=== PATIENT | female | born 1955 | race Asian ===

== ENCOUNTER → 2022-04-16 14:31 | Outpatient (CLI) | payer MEDICARE, OTHER, SELFPAY ==
--- NOTE | 2022-04-16 | DI.ECHO.S_ITS ---
[place] [facility]---------+ [facility] +---------+ : : [address] : : : : [place] : : : : [id number] : : : : Phone: [phone]---------+ Echocardiogram Report + + :Name: LEON BORRERO Study Date: 04/16/2022 Height: 60 in : :[facility] ReadingLocation: Weight: 140 lb : : Gender: Female BSA: 1.6 m2 : :: 1955 Age: 66 yrs BP: 168/103 mmHg: :Reason For Study: Abnormal ECG : :Ordering Physician: Arnol, : :Ramez Performed By: Fidencio Johnson : :Referring: Ramez Ambrose : + + Interpretation Summary The left ventricle is normal in size. There is mild concentric left ventricular hypertrophy. The ejection fraction is estimated to be 60-65%. Diastolic parameters suggest probable normal left ventricular diastolic function and normal filling pressures. There is mild mitral regurgitation. There is mild aortic regurgitation. Hypertensive during exam No prior study for comparison. Procedure: A two-dimensional transthoracic echocardiogram with color flow and Doppler was performed. The study quality was technically adequate. There is no prior echocardiogram noted for this patient. Hypertensive during exam. Left Ventricle: The left ventricle is normal in size. There is mild concentric left ventricular hypertrophy. Left ventricular systolic function is normal. The ejection fraction is estimated to be 60-65%. There are no focal wall motion abnormalities. Diastolic parameters suggest probable normal left ventricular diastolic function and normal filling pressures. Right Ventricle: The right ventricle is normal in size and function. Atria: Both atria are normal in size. The interatrial septum grossly appears intact with no obvious evidence for an atrial septal defect. Mitral Valve: The mitral valve is normal in structure and function. There is mild mitral regurgitation. Aortic Valve: The aortic valve is normal in structure and function. There is mild aortic regurgitation. Tricuspid Valve: The tricuspid valve is normal in structure and function. There is trace tricuspid regurgitation. The right ventricular systolic pressure is estimated to be at least 29 mmHg based on an estimated right atrial pressure of 3 mm Hg. Pulmonic Valve: The pulmonic valve is normal in structure and function. There is trace pulmonic regurgitation. Great Vessels: The aortic root is normal size. The dimensions of the ascending aorta are normal. The IVC is of normal diameter and collapses greater than 50% with a sniff. This suggests a low right atrial pressure of 3 mm Hg. Pericardium/ Pleura There is no pericardial effusion. There is no pleural effusion. MMode/2D Measurements & Calculations LVIDd: 4.4 cm LVOT diam: 1.9 cm LVIDs: 2.8 cm Ao root diam: 3.0 cm FS: 36.4 % asc Aorta Diam: 3.5 cm IVSd: 1.3 cm LVPWd: 1.2 cm LV clemente. diameter/BSA (cm/m^2): 2.7 LV sys. diameter/BSA (cm/m^2): 1.7 LA dimension: 2.6 cm RA long axis: 4.4 cm LA A2 area: 14.6 cm2 LA A4 area: 13.3 cm2 LA length (vol): 4.7 cm LA vol: 35.3 ml LA vol index: 22.0 ml/m2 TAPSE_phl: 2.1 cm Doppler Measurements & Calculations Ao V2 max: 114.0 cm/sec LVOT Max Ryan: 136.0 cm/sec Ao V2 mean: 87.3 cm/sec LV V1 max P.4 mmHg Ao max P.0 mmHg LV V1 VTI: 27.8 cm Ao mean P.0 mmHg AMADA(I,D): 3.2 cm2 Ao V2 VTI: 24.4 cm AMADA(V,D): 3.4 cm2 sev ratio: 1.1 AMADA indexed to BSA (cm^2/m^2): 2.0 MV E max ryan: 90.2 cm/sec TR max ryan: 256.0 cm/sec MV A max ryan: 114.0 cm/sec TR max P.2 mmHg MV E/A: 0.79 Med Peak E' Ryan: 6.2 cm/sec E/E' med: 14.6 Lat Peak E' Ryan: 9.2 cm/sec E/E' lat: 9.8 E/e' average: 12.2 MV dec time: 0.21 sec SV(LVOT): 78.8 ml AV VR_phl: 1.2 AMADA(VTI)/BSA_phl: 2.0 MV P1/2t-pr_phl: 61.0 msec Reading Physician:PHANI
== END ==
PROVIDERS: Referring Provider Family Medicine; Visit Provider Family Medicine
DX: R94.31 Abnormal electrocardiogram [ECG] [EKG] (principal); I08.0 Rheumatic disorders of both mitral and aortic valves
CPT/HCPCS: 93306

== ENCOUNTER 2023-07-15 16:52 | Emergency (ER) | payer OTHER, SELFPAY ==
[2023-07-15 16:56] VITALS: BP 176/85; PULSE 78; RESP 18; TEMP 36.9; O2SAT 95; BMI 24.5
--- NOTE | 2023-07-15 17:03 | DI.RAD.S_ITS ---
PROCEDURE: XR KNEE RT 3V INDICATIONS: R Knee injury on Saturday TECHNIQUE: 3 views of the knee were acquired. COMPARISON: None. FINDINGS: Bones: No fractures or dislocations. No suspicious bony lesions. Soft tissues: No joint effusion. No suspicious soft tissue calcifications. IMPRESSION: No acute bony abnormality or significant effusion. Dictated by: Quintin Grover M.D. on 07/15/2023 at 17:24 Approved by: Quintin Grover M.D. on 07/15/2023 at 17:24
--- NOTE | 2023-07-15 18:47 | ED.LOWEXIN ---
HPI - Extremity Injury (Lower) <FRANK Mosley - Last Filed: 07/15/23 18:53> General Chief Complaint: Extremity Injury, Lower Stated Complaint: fell/leg inj Time Seen by Provider: 07/15/23 17:32 Source: patient and family Mode of arrival: Wheelchair History of Present Illness HPI Narrative: 67-year-old female presents to the emergency department with right knee pain after slipping on a wet curb 2 days ago. Patient reports that her right leg slipped out from underneath her but does not recall hitting her knee cap on the ground. Patient did not hit her head or any loss of consciousness. Related Data Previous Rx's Medication Instructions Recorded naproxen 250 mg tablet 250 mg PO BID PRN pain #30 tabs 07/15/23 Allergies Allergy/AdvReac Type Severity Reaction Status Date / Time No Known Drug Allergies Allergy Verified 07/15/23 16:56 Review of Systems <FRANK Mosley - Last Filed: 07/15/23 18:53> Review of Systems Narrative: Narrative: See HPI. GENERAL: Denies chills, fatigue, fever, sweats. HEENT: Denies sinus pain, ear pain, sore throat, difficulty swallowing, dizziness. RESPIRATORY: Denies dyspnea, cough, wheezing, sputum. CARDIOVASCULAR: Denies chest pain, palpitations, edema. MSK: Denies weakness. Endorses right knee pain. SKIN: Denies rash, skin lesions, or pruritis. NEUROLOGIC: Denies weakness, dizziness, headache, numbness, confusion. Patient History <FRANK Mosley - Last Filed: 07/15/23 18:53> Social History Smoking Status: Never smoker Smoking Status: Never smoker Substance Use Type: does not use Exam <FRANK Mosley - Last Filed: 07/15/23 18:53> Narrative Exam Narrative: Exam Narrative: GENERAL: This is a well-nourished, well-developed patient, in no acute distress HEAD: Atraumatic. Normocephalic. RESPIRATORY: Respiratory rate and effort are normal. MSK: Moves all extremities. Normal range of motion, no clubbing or edema. Neurovascularly intact. NEURO: A&O x 3. SKIN: Warm, dry, no rashes or lesions noted. KNEE: There is no swelling, bruising or asymmetry. There is no tenderness to general palpation. Tenderness noted to tibial tuberosity. There is no joint line tenderness. There is no patellar tenderness. There is no popliteal fullness. Patella tracks normally. Range of motion is full and without pain. Pain worsens with walking. Resistive strength for flexion and extension is intact. Collateral and cruciate ligaments are intact. Drawer, Dung and Lever Tests are negative. Gait is ataxic. The contralateral knee exam is unremarkable. Initial Vital Signs Initial Vital Signs: Vital Signs Temperature 98.4 F 07/15/23 16:56 Pulse Rate 78 07/15/23 16:56 Respiratory Rate 18 07/15/23 16:56 Blood Pressure 176/85 H 07/15/23 16:56 Pulse Oximetry 95 07/15/23 16:56 Oxygen Delivery Method Room Air 07/15/23 16:56 Reviewed <Nahomy Corey DO - Last Filed: 07/16/23 04:08> Initial Vital Signs Initial Vital Signs: Vital Signs Temperature 98.4 F 07/15/23 16:56 Pulse Rate 78 07/15/23 16:56 Respiratory Rate 18 07/15/23 16:56 Blood Pressure 176/85 H 07/15/23 16:56 Pulse Oximetry 95 07/15/23 16:56 Oxygen Delivery Method Room Air 07/15/23 16:56 Course <FRANK Mosley - Last Filed: 07/15/23 18:53> Orders Ordered: ED Orders 07/15/23 17:03 XR knee RT 3V Stat Vital Signs Vital signs: Vital Signs - 8 hr 07/15/23 16:56 Temperature 98.4 F Pulse Rate 78 Respiratory Rate 18 Blood Pressure 176/85 H Pulse Oximetry 95 Oxygen Delivery Method Room Air <Nahomy Corey DO - Last Filed: 07/16/23 04:08> Orders Ordered: ED Orders 07/15/23 17:03 XR knee RT 3V Stat Vital Signs Vital signs: Vital Signs - 8 hr 07/15/23 16:56 Temperature 98.4 F Pulse Rate 78 Respiratory Rate 18 Blood Pressure 176/85 H Pulse Oximetry 95 Oxygen Delivery Method Room Air MDM - Extremity Injury (Lower) <FRANK Mosley - Last Filed: 07/15/23 18:53> Differential Diagnosis Differential diagnosis: Likely other (Patella fracture, knee strain, patella tendon rupture, Kemal-Schlatter) Lab Data Labs: Urine Dip Bedside Urine Glucose Negative Bedside Urine Bilirubin - Negative Bedside Urine Ketone - Negative Urine Specific [place] 1.010 Bedside Urine Occult Blood - Negative Bedside Urine pH 6.0 Bedside Urine Protein - Negative Bedside Urine Urobilinogen - Negative Bedside Urine Nitrite - Negative Bedside Urine Leukocytes - Negative Esterase Imaging Data Extremity x-ray #1: Radiologist's Impression: [address] [address] XRay Report Signed Patient: Ivy Avalos MR#: [id number] : 1955 Acct:[id number] Age/Sex: 67 / F Date of Service: 07/15/23 Loc: ED Accession Number: [id number] Procedure: XR knee RT 3V Ordering Provider: Lucas Severino MD PROCEDURE: XR KNEE RT 3V INDICATIONS: R Knee injury on Saturday TECHNIQUE: 3 views of the knee were acquired. COMPARISON: None. FINDINGS: Bones: No fractures or dislocations. No suspicious bony lesions. Soft tissues: No joint effusion. No suspicious soft tissue calcifications. IMPRESSION: No acute bony abnormality or significant effusion. Dictated by: Quintin Grover M.D. on 07/15/2023 at 17:24 Approved by: Quintin Grover M.D. on 07/15/2023 at 17:24 [facility] Narrative Medical decision making narrative: 67-year-old female with right knee pain. Assessment was encouraging and x-ray was normal. Suspect patient has a slight tear at the tibial tuberosity (ie: Kemal-Schlatter). Recommended supportive care to include rest, hot or cold compresses to the affected site, NSAIDs. Discussed plan of care and return precautions with patient, who verbalized understanding and was agreeable with course of action. Work note provided. <Nahomy Corey DO - Last Filed: 07/16/23 04:08> Lab Data Labs: Urine Dip Bedside Urine Glucose Negative Bedside Urine Bilirubin - Negative Bedside Urine Ketone - Negative Urine Specific [place] 1.010 Bedside Urine Occult Blood - Negative Bedside Urine pH 6.0 Bedside Urine Protein - Negative Bedside Urine Urobilinogen - Negative Bedside Urine Nitrite - Negative Bedside Urine Leukocytes - Negative Esterase Discharge Plan Departure Patient Disposition: Home Clinical Impression: Acute knee pain Qualifiers: Laterality: right Qualified Code(s): M25.561 - Pain in right knee Instructions: DI for Knee Pain Activity Restrictions/Additional Instructions: *You have been diagnosed with a right knee injury. Your x-ray was completely normal and I suspect you have a small tear along your tibial tuberosity. As we discussed, treatment for this includes rest, hot or cold compresses to the affected site 2 to 3 times a day and anti-inflammatory medications. I will send a prescription to your pharmacy. I recommend you take some time off of work to allow your self ample time to recover. Please feel free to return to the walk-in clinic or emergency department if symptoms persist or worsen. *What to do: *Please continue to take your regular medications as directed. [ x] New medication prescriptions sent to your pharmacy: [[facility]] [ ] New medication written as a paper prescription [ ] No new medications given *Please follow up with your primary care provider in 2-3 days, call for an appointment. Let them know you were seen in the Emergency Department and that we ask that you be seen in follow up. We will electronically transmit a record of today's note if your PCP is in our system *If you do not have a primary care provider please contact the [facility] Resource line at [phone]. They will ask some questions about your medical history and help get you set up with a doctor in the community. ? Return to ER if you should have any new, worsening or concerning symptoms, such as worsening pain, severe headache, confusion, chest pain, difficulty breathing, fever greater than 101 F, shaking chills, persistent vomiting to the point that you cannot drink fluids, or other new or worsening symptoms. Prescriptions: New naproxen 250 mg tablet 250 mg PO BID PRN (Reason: pain) Qty: 30 0RF Referrals: Provider,Ami WALKER [Primary Care Provider] - Stand Alone Forms: Patient Portal/API, Work Release Note ED Sign-out <Nahomy Corey DO - Last Filed: 07/16/23 04:08> Cosign ED Attending Jose J Attestation: I was available for consultation.
== END 2023-07-15 19:02 | disposition home or self-care (01) ==
PROVIDERS: Emergency Provider Registered Nurse
DX: M25.561 Pain in right knee (principal)
CPT/HCPCS: 73562; 81003; 99283

== ENCOUNTER 2023-07-23 14:36 | Emergency (ER) | payer OTHER, SELFPAY ==
[2023-07-23 14:50] VITALS: BP 201/88; PULSE 82; RESP 17; TEMP 36.6; O2SAT 100; BMI 25.4
[2023-07-23 16:47] VITALS: BP 191/91; PULSE 83; RESP 16; O2SAT 96
[2023-07-23 17:40] VITALS: BP 189/96; PULSE 87; O2SAT 97
--- NOTE | 2023-07-23 17:40 | PC.NURSE ---
PT was seen by Provider and discharged by Provider before manager union.
--- NOTE | 2023-07-24 11:07 | ED.LOWEXIN ---
HPI - Extremity Injury (Lower) <Destiny Candelaria PA-C - Last Filed: 07/24/23 11:13> General Chief Complaint: Extremity Injury, Lower Stated Complaint: right leg pain seen last week Time Seen by Provider: 07/23/23 17:16 Source: patient Mode of arrival: Ambulatory History of Present Illness HPI Narrative: Patient is a 67-year-old female who presents with right knee pain. She reports that [place] She was seen in the emergency room on 07/15/23 where an x-ray showed no acute bony abnormality or significant effusion. She was prescribed RICE plus naproxen. [place] and they prescribed diclofenac gel. She has been using both naproxen and diclofenac gel as well as ice and massage. She presents today for reassessment because her knees not getting better, she is worried about varicose veins in her lower leg, she needs a note for more time off of work. She does report she has been using the NSAIDs and ice, her knee is still stiff but it is not worse than previously. She denies fever, swelling or warmth or erythema in her lower leg. She has not tried any compression. Related Data Home Medications Medication Instructions Recorded Confirmed atorvastatin 20 mg tablet 20 mg PO DAILY 07/23/23 07/23/23 cyclobenzaprine 10 mg tablet 10 mg PO 3XD 07/23/23 07/23/23 diclofenac sodium 1 % topical gel topical 07/23/23 lisinopril 20 mg tablet 20 mg PO DAILY 07/23/23 07/23/23 Previous Rx's Medication Instructions Recorded naproxen 250 mg tablet 250 mg PO BID PRN pain #30 tabs 07/15/23 Allergies Allergy/AdvReac Type Severity Reaction Status Date / Time No Known Drug Allergies Allergy Verified 07/23/23 14:52 Review of Systems <Destiny Candelaria PA-C - Last Filed: 07/24/23 11:13> Review of Systems ROS Unobtainable: All systems reviewed & are unremarkable except as noted in HPI and below Patient History <Destiny Candelaria PA-C - Last Filed: 07/24/23 11:13> Social History Smoking Status: Never smoker Smoking Status: Never smoker Substance Use Type: does not use Exam <Destiny Candelaria PA-C - Last Filed: 07/24/23 11:13> Narrative Exam Narrative: GENERAL: 67 year old patient appears stated age. Well-developed patient, in no acute distress. NEURO: AOx3. HEAD: Atraumatic. Normocephalic. EYES: Pupils equal round and reactive. Extraocular motions intact. No scleral icterus. No injection or drainage. ENT: Nose without bleeding or purulent drainage. Airway patent. RESPIRATORY: No distress. EXTREMITIES: No appreciable edema of the right knee on exam. No lateral or medial joint line tenderness, full range of motion with passive and active range of motion. Patient complains of pain inferior to the patella. There is no swelling, erythema warmth of her calf. There are scattered varicose veins over her lower extremity. Her distal pulses and sensation are intact. SKIN: No rash or erythema of visible areas Initial Vital Signs Initial Vital Signs: Vital Signs Temperature 98 F 07/23/23 14:50 Pulse Rate 82 07/23/23 14:50 Respiratory Rate 17 07/23/23 14:50 Blood Pressure 201/88 H 07/23/23 14:50 Pulse Oximetry 100 07/23/23 14:50 Oxygen Delivery Method Room Air 07/23/23 14:50 <Karin Medina DO - Last Filed: 07/26/23 07:40> Initial Vital Signs Initial Vital Signs: Vital Signs Temperature 98 F 07/23/23 14:50 Pulse Rate 82 07/23/23 14:50 Respiratory Rate 17 07/23/23 14:50 Blood Pressure 201/88 H 07/23/23 14:50 Pulse Oximetry 100 07/23/23 14:50 Oxygen Delivery Method Room Air 07/23/23 14:50 MDM - Extremity Injury (Lower) <Destiny Candelaria PA-C - Last Filed: 07/24/23 11:13> [facility] Narrative Medical decision making narrative: Patient seen previously for the same injury, x-ray negative. Her symptoms have not worsened and she has not re-injured the area. I encouraged continued rest, ice, elevation, NSAIDs. Discussed that naproxen and diclofenac are from the same family of NSAIDs and I would not recommend using both of them at the same time. If she thinks the diclofenac is helping, I would switch to Tylenol orally. Or stop the diclofenac and continue the naproxen. Discussed the risks of using too much of this type of medication, including kidney damage. Patient is very anxious to have an immediate intervention for her knee pain so that she can return to work; I advised continued conservative treatment but gave her the option to follow up with Orthopedics if her knee pain is not improving after 1 more week. I gave her a note for 5 more days off of work for rest. Return precautions advised. Patient's symptoms improved over duration of stay with above-stated therapies. Findings and discharge diagnosis discussed with patient/family followed by verbalization of understanding Return precautions discussed with patient/family whom verbalize understanding of diagnosis and plan Discharge Plan Departure Patient Disposition: Home Clinical Impression: Acute knee pain Qualifiers: Laterality: right Qualified Code(s): M25.561 - Pain in right knee Instructions: DI for Knee Pain Activity Restrictions/Additional Instructions: *You have been diagnosed with right knee pain. I would suggest that you take time off work, continue resting, applying ice or heat, taking your medications as prescribed. I will refer you to the orthopedic doctor who can help assess your knee and provide further pain relief. *What to do: *Please continue to take your regular medications as directed. [ ] New medication prescriptions sent to your pharmacy: [ ] [ ] New medication written as a paper prescription [x] No new medications given *Please follow up with your primary care provider in 2-3 days, call for an appointment. Let them know you were seen in the Emergency Department and that we ask that you be seen in follow up. We will electronically transmit a record of today's note if your PCP is in our system *If you do not have a primary care provider please contact the [facility] Resource line at [phone]. They will ask some questions about your medical history and help get you set up with a doctor in the community. *Return to Emergency Department if you should have any new, worsening or concerning symptoms, such as [fever greater than 101 F, shaking chills, worsening pain, persistent vomiting or other concerning symptoms]. Prescriptions: No Action naproxen 250 mg tablet 250 mg PO BID PRN (Reason: pain) Qty: 30 0RF cyclobenzaprine 10 mg tablet 10 mg PO 3XD atorvastatin 20 mg tablet 20 mg PO DAILY lisinopril 20 mg tablet 20 mg PO DAILY diclofenac sodium 1 % gel topical Referrals: [facility] [Provider Group] Provider,Ami WALKER [Primary Care Provider] - Stand Alone Forms: Patient Portal/API, Work Release Note ED Sign-out <Karin Medina DO - Last Filed: 07/26/23 07:40> Cosign ED Attending Jose J Attestation: I was immediately available in the department for consultation.
== END 2023-07-23 17:40 | disposition home or self-care (01) ==
PROVIDERS: Emergency Provider Physician Assistant
DX: M25.561 Pain in right knee (principal)
CPT/HCPCS: 99281